=== PATIENT | female | born 2000 | race Caucasian/White ===

== ENCOUNTER 2024-03-05 16:06 | Outpatient (CLI) | payer OTHER, SELFPAY ==
[2024-03-05 16:45] VITALS: BP 132/82; PULSE 101
[2024-03-05 16:50] LABS: Basophils Percent Auto 0.2 % (0.2-1.2); Eosinophils Absolute Auto 0.1 K/mm3 (0-0.3); Eosinophils Percent Auto 0.9 % (0-4.4); Hematocrit 32.3 % (37.0-47.0); Hemoglobin 10.5 g/dL (12.0-15.0); Immature Granulocyte Absolute 0.04 K/mm3 (0.00-0.031); Immature Granulocyte Percent A 0.4 % (0-0.5); Lymphocytes Percent Auto 20.1 % (18.3-44.2); Mean Corpuscular HGB Conc 32.5 g/dl (32-36); Mean Corpuscular Hemoglobin 29.7 pg (26-34); Mean Corpuscular Volume 91.2 fl (80-100); Mean Platelet Volume 9.6 fl (7.4-10.4); Monocytes Absolute Auto 0.6 K/mm3 (0.1-0.6); Monocytes Percent Auto 6.4 % (2.6-8.5); Neutrophils Absolute Auto 7.1 K/mm3 (1.3-6.7); Platelet Count Result 302 k/mm3 (150-375); Red Blood Count 3.54 M/mm3 (4.2-5.4); Red Cell Distribution Width 13.5 % (11.5-14.5); White Blood Count 9.9 K/mm3 (4.5-10.0)
[2024-03-05 16:54] LABS: Add Urine Microscopic? YES; Appearance Urine Clear (Clear); Bacteria Urine Rare /hpf; Bilirubin Urine Negative (Negative); Blood Urine Non-Hemolyzed Trace (Negative); Color Urine Yellow (Yellow); Glucose Urine UA Negative (Negative); Ketones Urine Trace mg/dL (Negative); Leukocyte Esterase Ur 1+ LEU/UL (Negative); Nitrate Urine Negative (Negative); Non Pathogenic Casts 0-2; Protein Urine 2+ mg/dL (Negative); Specific Grav Ur 1.017 (1.001-1.035); Squamous Epithelial Cell Urine Few /hpf (Few); pH Urine 6.5 (5.0-9.0)
[2024-03-05 17:00] VITALS: BP 126/78; PULSE 108
[2024-03-05 17:07] LABS: Alanine Aminotransferase 16 U/L (6-35); Albumin Level 3.6 g/dL (3.5-5.1); Alkaline Phosphatase 123 U/L (38-126); Anion Gap 11 mmol/L (4-12); Aspartate Amino Transferase 26 U/L (14-36); Bilirubin,Total 0.2 mg/dL (0.2-1.3); Blood Urea Nitrogen 6 mg/dL (7-17); Calcium 9.3 mg/dL (8.4-10.2); Carbon Dioxide 20 mmol/L (22-30); Chloride 102 mmol/L (98-107); Creatinine Urine 171.2 mg/dL; Estimated Glomerular Filt Rate > 60; Glucose 111 mg/dL (65-110); Potassium 3.9 mmol/L (3.4-5.0); Sodium 133 mmol/L (137-145); Total Protein Urine Random 61 mg/dL; Ur Ttl Prot Creatinine Ratio 0.36 mg/mg (0-0.20); Uric Acid 4.7 mg/dL (2.5-7.5)
[2024-03-05 17:15] VITALS: BP 124/80; PULSE 106
--- NOTE | 2024-03-05 17:22 | PC.NURSE ---
Dr Gustafson notified of lab results, BP's and tracing ok to dc home with 24 hour urine collection.
[2024-03-05 17:32] VITALS: BP 132/82; PULSE 103; BMI 34.4
== END 2024-03-05 17:32 | disposition home or self-care (01) ==
LOC: ANHOBOP 16:22 → ANHOBPP 16:23
PROVIDERS: PCP Obstetrics & Gynecology; Visit Provider Obstetrics & Gynecology
DX: O13.9 Gestational [pregnancy-induced] hypertension without significant proteinuria, unspecified trimester (principal); Z3A.00 Weeks of gestation of pregnancy not specified
CPT/HCPCS: 36415; 59025; 80053; 81001; 81050; 82570; 82575; 84156; 84550; 85025; 87077; 87086; 87088; 99199

== ENCOUNTER 2024-03-06 17:44 | Outpatient (NON) | payer OTHER, SELFPAY ==
[2024-03-06 17:44] VITALS: BMI 34.3
[2024-03-06 20:22] LABS: Collection Time Urine 24 HOURS
[2024-03-06 20:28] LABS: Total Volume 24 Hour Urine 2050 ml
[2024-03-06 20:29] LABS: Patient Weight 219 Lbs
[2024-03-06 20:31] LABS: Creatinine Clearance Urine 182.7 ml/min (75-125); Creatinine Urine 77.7 mg/dL; Total Protein Urine Random 51 mg/dL
[2024-03-06 22:19] LABS: Total Protein Urine 24 Hr 1045 mg/24hr (28-141)
== END 2024-03-06 17:45 | disposition home or self-care (01) ==
LOC: ANHOBOP 17:50
PROVIDERS: PCP Obstetrics & Gynecology; Visit Provider Obstetrics & Gynecology
DX: Z34.90 Encounter for supervision of normal pregnancy, unspecified, unspecified trimester (principal); Z3A.00 Weeks of gestation of pregnancy not specified
CPT/HCPCS: 81050; 82575; 84156

== ENCOUNTER 2024-03-16 01:50 | Observation (INO) | payer OTHER, SELFPAY ==
[2024-03-16] VITALS (16 sets, daily range): BP systolic 125–163; BP diastolic 86–102; PULSE 81–101; TEMP 36.7–36.8; BMI 33.8
--- NOTE | ~2024-03-16 | US_ITS ---
Duplex Sonography of the bilateral lower extremities: Indication: Pain and swelling Sagittal and transverse B-mode images as well as color-flow imaging were performed on the right and l eft femoral and popliteal veins. B-mode examination was done without and with compression in the tra nsverse plane. There is good visualization of the bilateral common femoral, proximal profunda femora l, superficial femoral, greater saphenous, and popliteal veins. Normal flow was seen on color-flow im aging. Normal compressibility was demonstrated. Visualized calf veins are also patent. Impression: No evidence of deep vein thrombosis involving the bilateral lower extremities. Reviewed, dictated and finalized at location M. Impression: No evidence of deep vein thrombosis involving the bilateral lower e xtremities.
[2024-03-16 02:31] LABS: Basophils Percent Auto 0.3 % (0.2-1.2); Eosinophils Absolute Auto 0.2 K/mm3 (0-0.3); Eosinophils Percent Auto 1.4 % (0-4.4); Hematocrit 28.2 % (37.0-47.0); Hemoglobin 9.5 g/dL (12.0-15.0); Immature Granulocyte Absolute 0.05 K/mm3 (0.00-0.031); Immature Granulocyte Percent A 0.4 % (0-0.5); Lymphocytes Absolute Auto 3.24 K/mm3 (0.9-3.2); Mean Corpuscular HGB Conc 33.7 g/dl (32-36); Mean Corpuscular Hemoglobin 30.4 pg (26-34); Mean Corpuscular Volume 90.1 fl (80-100); Monocytes Absolute Auto 0.9 K/mm3 (0.1-0.6); Monocytes Percent Auto 7.4 % (2.6-8.5); Neutrophils Absolute Auto 7.2 K/mm3 (1.3-6.7); Neutrophils Percent Auto 62.5 % (45.5-73.1); Platelet Count Result 310 k/mm3 (150-375); Red Blood Count 3.13 M/mm3 (4.2-5.4); Red Cell Distribution Width 14.3 % (11.5-14.5); White Blood Count 11.6 K/mm3 (4.5-10.0)
[2024-03-16 02:38] LABS: Creatinine Urine 49.5 mg/dL
[2024-03-16 02:44] LABS: Alanine Aminotransferase 14 U/L (6-35); Albumin Level 3.5 g/dL (3.5-5.1); Alkaline Phosphatase 133 U/L (38-126); Anion Gap 7 mmol/L (4-12); Aspartate Amino Transferase 25 U/L (14-36); Bilirubin,Total 0.3 mg/dL (0.2-1.3); Blood Urea Nitrogen 7 mg/dL (7-17); Calcium 10.1 mg/dL (8.4-10.2); Carbon Dioxide 21 mmol/L (22-30); Chloride 106 mmol/L (98-107); Estimated Glomerular Filt Rate > 60; Glucose 80 mg/dL (65-110); Sodium 134 mmol/L (137-145); Uric Acid 5.6 mg/dL (2.5-7.5)
[2024-03-16 02:46] LABS: Total Protein Urine Random 355 mg/dL; Ur Ttl Prot Creatinine Ratio 7.17 mg/mg (0-0.20)
--- NOTE | 2024-03-16 02:46 | OBADM ---
This patient, Alexsandra Gil, admitted to the OB room [facility] for observation. Patient/family oriented to hospital policies and general routines including ID bracelet, bed and alarms, visiting hours, pain management, procedures, bathroom and other care routines, personal items, smoking policy, room service/diet, and visiting hours. Patient/Family are encouraged to report perceived risks to care and to ask questions if they do not understand what they are told or what they should do.
[2024-03-16 02:50] LABS: Add Urine Microscopic? YES; Appearance Urine Clear (Clear); Bacteria Urine 1+ /hpf; Bilirubin Urine Negative (Negative); Blood Urine 1+ (Negative); Color Urine Yellow (Yellow); Glucose Urine UA Negative (Negative); Ketones Urine Negative (Negative); Leukocyte Esterase Ur Negative LEU/UL (Negative); Need Manual Microscopic Reviewed; Nitrate Urine Negative (Negative); Protein Urine 3+ mg/dL (Negative); Specific Grav Ur 1.008 (1.001-1.035); Squamous Epithelial Cell Urine Occasional /hpf (Few); Urobilinogen Urine 0.2 mg/dL (<2.0); pH Urine 6.5 (5.0-9.0)
--- NOTE | 2024-03-28 17:05 | P.PNOB_ITS ---
OB - Triage/Final Diagnosis Visit Information Comments/Additional reasons for admission: I have assessed the risk for this patient, Alexsandra Gil, and determined that she would benefit from observation care. Evaluation Laboratory results: Laboratory Tests 03/16/24 03/16/24 02:11 02:12 WBC 11.6 H RBC 3.13 L Hgb 9.5 L Hct 28.2 L MCV 90.1 MCH 30.4 MCHC 33.7 RDW 14.3 Plt Count 310 MPV 10.0 Immature Gran % (Auto) 0.4 Neut % (Auto) 62.5 Lymph % (Auto) 28.0 [place] % (Auto) 7.4 Eos % (Auto) 1.4 Baso % (Auto) 0.3 Lymph # (Auto) 3.24 H [place] # (Auto) 0.9 H Eos # (Auto) 0.2 Baso # (Auto) 0.0 Abs Immat Gran (auto) 0.05 H Absolute Neuts (auto) 7.2 H Absolute Nucleated RBC 0.000 Nucleated RBC % 0.0 Sodium 134 L Potassium 4.0 Chloride 106 Carbon Dioxide 21 L Anion Gap 7 BUN 7 Creatinine 0.50 L Estim Creat Clear Calc Not Reportable Estimated GFR > 60 Glucose 80 Uric Acid 5.6 Calcium 10.1 Total Bilirubin 0.3 AST 25 ALT 14 Alkaline Phosphatase 133 H Total Protein 7.0 Albumin 3.5 Urine Color Yellow Urine Appearance Clear Urine pH 6.5 Ur Specific [place] 1.008 Urine Protein 3+ H Urine Glucose (UA) Negative Urine Ketones Negative Ur Blood (Man) 1+ H Urine Nitrate Negative Urine Bilirubin Negative Urine Urobilinogen 0.2 Add Ur Microanalysis Reviewed Leukocyte Esterase Rfl Negative Urine RBC 3-5 H Urine WBC 11-20 H Ur Squamous Epith Cells Occasional Urine Bacteria 1+ H Urine Casts 3-5 U Random Total Protein 355 Urine Creatinine 49.5 Protein/Creat Ratio 2 7.17 H Final Diagnosis (1) Lower extremity edema: Code(s): R60.0 - Localized edema Status: Acute
== END 2024-03-16 09:29 | disposition home or self-care (01) ==
PROVIDERS: Admitting Provider Obstetrics & Gynecology; Visit Provider Obstetrics & Gynecology
DX: O12.03 Gestational edema, third trimester (principal); Z3A.29 29 weeks gestation of pregnancy
CPT/HCPCS: 36415; 80053; 81001; 82570; 84156; 84550; 85025; 87086; 93970; G0378; G0379

== ENCOUNTER 2024-03-19 15:24 | Outpatient (CLI) | payer OTHER, SELFPAY ==
[2024-03-19] VITALS (12 sets, daily range): BP systolic 132–156; BP diastolic 80–105; PULSE 81–100
[2024-03-19 16:07] LABS: Basophils Percent Auto 0.4 % (0.2-1.2); Eosinophils Absolute Auto 0.1 K/mm3 (0-0.3); Eosinophils Percent Auto 0.9 % (0-4.4); Hematocrit 34.6 % (37.0-47.0); Hemoglobin 11.5 g/dL (12.0-15.0); Immature Granulocyte Absolute 0.03 K/mm3 (0.00-0.031); Immature Granulocyte Percent A 0.4 % (0-0.5); Lymphocytes Absolute Auto 2.26 K/mm3 (0.9-3.2); Lymphocytes Percent Auto 26.7 % (18.3-44.2); Mean Corpuscular HGB Conc 33.2 g/dl (32-36); Mean Corpuscular Volume 90.3 fl (80-100); Mean Platelet Volume 10.1 fl (7.4-10.4); Monocytes Absolute Auto 0.7 K/mm3 (0.1-0.6); Monocytes Percent Auto 8.1 % (2.6-8.5); Neutrophils Absolute Auto 5.4 K/mm3 (1.3-6.7); Neutrophils Percent Auto 63.5 % (45.5-73.1); Platelet Count Result 272 k/mm3 (150-375); Red Blood Count 3.83 M/mm3 (4.2-5.4); Red Cell Distribution Width 14.6 % (11.5-14.5); White Blood Count 8.5 K/mm3 (4.5-10.0)
[2024-03-19] MEDS: LABETALOL HCL 100 MG TABLET 200 MG PO (16:07)
[2024-03-19 16:28] LABS: Alanine Aminotransferase 17 U/L (6-35); Albumin Level 3.4 g/dL (3.5-5.1); Alkaline Phosphatase 133 U/L (38-126); Anion Gap 6 mmol/L (4-12); Aspartate Amino Transferase 30 U/L (14-36); Bilirubin,Total 0.2 mg/dL (0.2-1.3); Blood Urea Nitrogen 10 mg/dL (7-17); Calcium 9.1 mg/dL (8.4-10.2); Carbon Dioxide 21 mmol/L (22-30); Chloride 105 mmol/L (98-107); Estimated Glomerular Filt Rate > 60; Glucose 70 mg/dL (65-110); Potassium 4.1 mmol/L (3.4-5.0); Sodium 132 mmol/L (137-145); Uric Acid 6.8 mg/dL (2.5-7.5)
[2024-03-19 16:47] LABS: Add Urine Microscopic? YES; Appearance Urine Turbid (Clear); Bacteria Urine 3+ /hpf; Bilirubin Urine Negative (Negative); Blood Urine 2+ (Negative); Color Urine Dark Yellow (Yellow); Glucose Urine UA Negative (Negative); Hyaline Casts Urine Present /lpf; Ketones Urine Trace mg/dL (Negative); Leukocyte Esterase Ur Negative LEU/UL (Negative); Nitrate Urine Negative (Negative); Non Pathogenic Casts >20; Protein Urine 4+ mg/dL (Negative); Specific Grav Ur 1.022 (1.001-1.035); Squamous Epithelial Cell Urine Occasional /hpf (Few); WBC Urine 21-50 /hpf (0-3)
--- NOTE | 2024-03-19 18:10 | PC.NURSE ---
This RN spoke with Dr. Gustafson. aware of lab results and current blood pressures. New orders received at this time for a prescription for Macrobid and Labetalol. New orders received to give Rocephin now. New orders to discharge patient after administering Rocephin.
[2024-03-19 18:53] LABS: Total Protein Urine Random > 600 mg/dL; Ur Ttl Prot Creatinine Ratio > 3.75 mg/mg (0-0.20)
== END 2024-03-19 19:25 | disposition home or self-care (01) ==
LOC: ANHOBOP 15:29 → ANHOBPP 15:29
PROVIDERS: Visit Provider Obstetrics & Gynecology
DX: O13.9 Gestational [pregnancy-induced] hypertension without significant proteinuria, unspecified trimester (principal); Z3A.00 Weeks of gestation of pregnancy not specified
CPT/HCPCS: 36415; 80053; 81001; 82570; 84156; 84550; 85025; 87086; 96374; 99199; A9270; J0696